=== PATIENT | female | born 1985 | race Asian ===

== ENCOUNTER 2017-01-04 14:35 | Emergency (ER) | payer OTHER ==
[~2017-01-04] VITALS: Ht 149.9 cm; Wt 59.9 kg
[2017-01-04 15:03] VITALS: TEMP 99.4
[2017-01-04 15:46] LABS: PLATELET COUNT 171 K/uL (152-353)
[2017-01-04] MEDS ORDERED: CEPASTAT14.5 MG MT (16:25)
[2017-01-04] MEDS ORDERED: KETO10TA34 PO (16:25)
[2017-01-04] MEDS ORDERED: CETI10TA PO (16:25)
[2017-01-04] MEDS ORDERED: AMOX875T8 PO (16:25)
[2017-01-04 16:30] VITALS: BP 110/70
== END 2017-01-04 16:30 | disposition home or self-care (01) ==
LOC: ED 14:35
DX: J02.9 Acute pharyngitis, unspecified (principal)
CPT/HCPCS: 85027; 87081; 87804; 87880; 99283

== ENCOUNTER 2018-01-31 17:22 | Emergency (ER) | payer OTHER ==
[~2018-01-31] VITALS: Ht 149.9 cm; Wt 53.1 kg
[~2018-01-31 17:22] MED LIST: AMOX875T8 PO; CEPASTAT14.5 MG MT; CETI10TA PO; KETO10TA34 PO
[2018-01-31 21:05] LABS: PLATELET COUNT 198 K/uL (152-353)
[2018-01-31 21:10] LABS: POTASSIUM 3.9 mmol/L (3.6-5.2); SODIUM 135 mmol/L (136-145)
[2018-01-31 21:48] VITALS: BP 108/75; TEMP 98.1
== END 2018-01-31 22:01 | disposition home or self-care (01) ==
LOC: ED 17:22
PROVIDERS: Specialist
DX: R10.84 Generalized abdominal pain (principal)
CPT/HCPCS: 36415; 80048; 81000; 84702; 85027; 99283

== ENCOUNTER 2023-03-29 07:40 | Emergency (ER) | payer OTHER ==
[~2023-03-29] VITALS: Ht 152.4 cm; Wt 56.7 kg
[2023-03-29 08:38] LABS: PLATELET COUNT 213 K/uL (152-353)
[2023-03-29 08:42] LABS: POTASSIUM 4.1 mmol/L (3.6-5.2)
[2023-03-29 09:39] VITALS: BP 129/80; TEMP 98.8
== END 2023-03-29 09:39 | disposition home or self-care (01) ==
LOC: ED 07:40
PROVIDERS: Emergency Medicine
DX: S39.011A Strain of muscle, fascia and tendon of abdomen, initial encounter (principal); O23.41 Unspecified infection of urinary tract in pregnancy, first trimester; N39.0 Urinary tract infection, site not specified; Z3A.10 10 weeks gestation of pregnancy
CPT/HCPCS: 80053; 81000; 82150; 83690; 84702; 85027; 87088; 99284